=== PATIENT | female | born 1965 | race Caucasian/White ===

== ENCOUNTER 2018-03-20 16:49 | Emergency (ER) | payer BC ==
[2018-03-20 17:10] VITALS: BP 153/90; PULSE 89; RESP 16; TEMP 98.3
--- NOTE | 2018-03-20 17:42 | ED ---
Extremity Problem HPI - General Chief complaint: Extremity Problem,Nontraumatic Stated complaint: Poss DVT rt leg Time Seen by Provider: 03/20/18 17:27 Source: patient, RN notes reviewed Mode of arrival: ambulatory Limitations: no limitations - History of Present Illness Initial comments: 52-year-old female presents emergency Department chief complaint of right leg pain and swelling. Patient states that she's had this ongoing rash that she is seeing dermatology and rheumatology for they initially thought it was psoriatic rash though they found it is some sort granulomatous disease and they have started on Silvadene. Patient states that they noticed that her right leg was more swollen, slightly increased warmth. They told her concern about possible DVT and sent here for ultrasound. Patient denies any chest pain or shortness breath. Denies any other complaints. - Related Data Home Medications Medication Instructions Recorded Confirmed Lisinopril [Prinivil] 5 mg PO DAILY 09/21/15 03/20/18 Cefadroxil [Duricef] 500 mg PO QID 03/20/18 03/20/18 Cymbalta (Unknown Dose) 1 tab PO DIRECTED 03/20/18 03/20/18 Ibuprofen [Motrin Ib] 600 mg PO Q6H PRN 03/20/18 03/20/18 Lisdexamfetamine Dimesylate 10 mg PO QAM 03/20/18 03/20/18 [Vyvanse] Silver Sulfadiazine [SSD 1% Cream] 1 applic TOPICAL DIRECTED 03/20/18 Allergies Allergy/AdvReac Type Severity Reaction Status Date / Time amoxicillin trihydrate AdvReac Nausea & Verified 03/20/18 17:44 [From Augmentin] Vomiting Iodinated Contrast- Oral and AdvReac Swelling Verified 03/20/18 17:44 IV Dye meperidine HCl [From Demerol] AdvReac Nausea & Verified 03/20/18 17:44 Vomiting potassium clavulanate AdvReac Nausea & Verified 03/20/18 17:44 [From Augmentin] Vomiting Review of Systems ROS Statement: Those systems with pertinent positive or pertinent negative responses have been documented in the HPI. ROS Other: All systems not noted in ROS Statement are negative. Past Medical History Past Medical History: Hypertension History of Any Multi-Drug Resistant Organisms: None Reported Past Surgical History: Section, Cholecystectomy, Tonsillectomy Additional Past Surgical History / Comment(s): ACL repair left, Left knee Repair , Gastric Sleeve - 2010 Past Psychological History: ADD/ADHD Smoking Status: Never smoker Past Alcohol Use History: Occasional Past Drug Use History: None Reported General Exam Limitations: no limitations General appearance: alert, in no apparent distress Respiratory exam: Present: normal lung sounds bilaterally. Absent: respiratory distress, wheezes, rales, rhonchi, stridor Cardiovascular Exam: Present: regular rate, normal rhythm, normal heart sounds. Absent: systolic murmur, diastolic murmur, rubs, gallop, clicks Extremities exam: Present: other (Right calf there is moderate swelling, there is a noted rash on the anterior to lateral surface of the right lower extremity which is scaly, mild erythema pedal pulses equal bilaterally lower extremities) Skin exam: Present: warm, dry, intact, normal color. Absent: rash Course Vital Signs 03/20/18 17:08 Temperature 98.3 F Pulse Rate 89 Respiratory 16 Rate Blood Pressure 153/90 O2 Sat by Pulse 100 Oximetry Medical Decision Making - Medical Decision Making 52-year-old female presented for leg swelling. Patient did have ultrasound which was negative for acute DVT swelling is related to her rash or leg currently being seen by dermatology and rheumatology. Patient has current new treatment and will start this and return for any worsening symptoms. Disposition Clinical Impression: Swelling of right lower extremity, Rash Disposition: HOME SELF-CARE Condition: Stable Instructions: Leg Edema (ED) Additional Instructions: Please return to the Emergency Department if symptoms worsen or any other concerns. Is patient prescribed a controlled substance at d/c from ED?: No Referrals: Winston Cain DO [Primary Care Provider] - 1-2 days Time of Disposition: 19:01
--- NOTE | 2018-03-20 18:38 | US ---
EXAMINATION TYPE: US venous doppler duplex LE RT DATE OF EXAM: 03/20/2018 6:31 PM COMPARISON: NONE CLINICAL HISTORY: Pain. Right lower leg pain and swelling x 6 weeks SIDE PERFORMED: Right TECHNIQUE: The lower extremity deep venous system is examined utilizing real time linear array sonog chiquita with graded compression, doppler sonography and color-flow sonography. VESSELS IMAGED: External Iliac Vein (EIV) Common Femoral Vein Deep Femoral Vein Greater Saphenous Vein * Femoral Vein Popliteal Vein Small Saphenous Vein * Proximal Calf Veins (* superficial vessels) Right Leg: Appears negative for DVT IMPRESSION: Normal exam. No evidence of deep venous thrombosis in the right leg.
== END 2018-03-20 19:14 | disposition home or self-care (01) ==
LOC: EC 16:49
DX: M79.89 Other specified soft tissue disorders (principal); R21 Rash and other nonspecific skin eruption; M79.604 Pain in right leg; I10 Essential (primary) hypertension; F90.9 Attention-deficit hyperactivity disorder, unspecified type; Z79.899 Other long term (current) drug therapy; Z88.0 Allergy status to penicillin; Z91.041 Radiographic dye allergy status; Z88.5 Allergy status to narcotic agent
CPT/HCPCS: 99283

== ENCOUNTER 2019-05-11 11:17 | Observation (INO) | payer BC ==
[2019-05-11] MEDS ORDERED: ASPIRIN 81 MG PO STA (11:39)
[2019-05-11] MEDS ORDERED: NITROGLYCERIN SL TABS 0.4 MG TAB SUBLINGUAL STA (11:39)
[2019-05-11] MEDS: SODIUM CHLORIDE 0.9% 1,000 ML IV STA (11:45)
--- NOTE | 2019-05-11 11:48 | ED ---
Chest Pain HPI - General Chief Complaint: Chest Pain Stated Complaint: SOB, CHEST PAIN/HEAVYNESS, SHOULDER BLADES Time Seen by Provider: 05/11/19 11:22 Source: patient, RN notes reviewed Mode of arrival: wheelchair Limitations: no limitations - History of Present Illness Initial Comments: This is a 53-year-old female with no prior personal history of heart disease she is an occasional smoker and drinker who states about half hour prior to arrival started developing retrosternal chest heaviness with sharp pain going across her lower chest and upper abdomen and then toward her back and shoulder blades she also states her teeth and jaw hurt and she also had radiation down her left arm the pain was initially 7/10 is now down to about 5/10 it was associated with shortness of breath no fevers chills sweats no focal weakness no other symptoms. He has no prior personal history of heart disease. MD Complaint: chest pain - Related Data Home Medications Medication Instructions Recorded Confirmed Lisinopril [Prinivil] 5 mg PO DAILY 09/21/15 05/11/19 Ibuprofen [Motrin Ib] 600 mg PO Q6H PRN 03/20/18 05/11/19 Lisdexamfetamine Dimesylate 10 mg PO QAM 03/20/18 05/11/19 [Vyvanse] DULoxetine HCL [Cymbalta] 30 mg PO HS 05/11/19 05/11/19 Esomeprazole Magnesium [NexIUM] 40 mg PO DAILY 05/11/19 05/11/19 Allergies Allergy/AdvReac Type Severity Reaction Status Date / Time amoxicillin trihydrate AdvReac Nausea & Verified 05/11/19 11:58 [From Augmentin] Vomiting Iodinated Contrast Media AdvReac Swelling Verified 05/11/19 11:58 [Iodinated Contrast- Oral and IV Dye] meperidine HCl [From Demerol] AdvReac Nausea & Verified 05/11/19 11:58 Vomiting potassium clavulanate AdvReac Nausea & Verified 05/11/19 11:58 [From Augmentin] Vomiting Review of Systems ROS Statement: Those systems with pertinent positive or pertinent negative responses have been documented in the HPI. ROS Other: All systems not noted in ROS Statement are negative. EKG Findings - EKG Results: EKG: interpreted by ERMD, WNL, sinus rhythm, normal axis, normal QRS, normal ST/T, no acute changes (Ventricular rate 91 UT interval 170 QRS duration 92 QT/QTC 374/460) Past Medical History Past Medical History: CVA/TIA, Hypertension History of Any Multi-Drug Resistant Organisms: None Reported Past Surgical History: Section, Cholecystectomy, Tonsillectomy Additional Past Surgical History / Comment(s): ACL repair left, Left knee Repair, Gastric Sleeve - 2010, Past Psychological History: ADD/ADHD Smoking Status: Never smoker Past Alcohol Use History: Occasional Past Drug Use History: None Reported General Exam - General Exam Comments Initial Comments: This is a well-developed well-nourished awake alert oriented 3 female Limitations: no limitations General appearance: alert, anxious Head exam: Present: atraumatic, normocephalic, normal inspection Eye exam: Present: normal appearance, PERRL, EOMI. Absent: scleral icterus, conjunctival injection, periorbital swelling ENT exam: Present: normal exam, mucous membranes moist Neck exam: Present: normal inspection, full ROM, other (No stridor JVD or bruits). Absent: tenderness, meningismus, lymphadenopathy Respiratory exam: Present: normal lung sounds bilaterally. Absent: respiratory distress, wheezes, rales, rhonchi, stridor Cardiovascular Exam: Present: regular rate, normal rhythm, normal heart sounds. Absent: systolic murmur, diastolic murmur, rubs, gallop, clicks GI/Abdominal exam: Present: soft, normal bowel sounds. Absent: distended, tenderness, guarding, rebound, rigid, bruit, pulsatile mass Extremities exam: Present: normal inspection, full ROM, normal capillary refill. Absent: tenderness, pedal edema, joint swelling, calf tenderness Back exam: Present: normal inspection Neurological exam: Present: alert, oriented X3, CN II-XII intact Psychiatric exam: Present: normal affect, normal mood Skin exam: Present: warm, dry, intact, normal color. 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 Patient is pain-free at this time though is unclear whether the patient's discomfort was helped by aspirin and nitroglycerin. She states she's never felt anything quite like this before. After long discussion with her and her patient be staying for inpatient evaluation of chest pain which is consistent with acute coronary syndrome. Critical Care Time Critical Care Time: Yes Critical Care Time: 31 minutes of critical care time which includes initial presentation with history physical labs x-rays therapy discuss with the patient family regarding findings discussion with the main physician Dr. Bo and admission orders Disposition Clinical Impression: Unstable angina pectoris, Acute coronary syndrome, Chest pain Disposition: ADMITTED IP TO THIS [facility] Condition: Fair Referrals: Winston Cain DO [Primary Care Provider] - 1-2 days
[2019-05-11 12:00] LABS: Basophils % (A) 0 %; Eosinophils # (A) 0.3 k/uL (0-0.7); Eosinophils % (A) 5 %; Lymphocytes # (A) 1.7 k/uL (1.0-4.8); Lymphocytes % (A) 25 %; MCH 29.2 pg (25.0-35.0); MCHC 33.5 g/dL (31.0-37.0); MCV 87.3 fL (80.0-100.0); Mean Platelet Volume 5.8; Monocytes # (A) 0.3 k/uL (0-1.0); Monocytes % (A) 5 %; Neutrophils # (A) 4.1 k/uL (1.3-7.7); Neutrophils % (A) 62 %; Platelet Count 251 k/uL (150-450); RBC 4.12 m/uL (3.80-5.40); RDW 14.5 % (11.5-15.5); WBC 6.7 k/uL (3.8-10.6)
[2019-05-11 12:15] LABS: Albumin 4.2 g/dL (3.5-5.0); Calcium 9.4 mg/dL (8.4-10.2); Magnesium 1.9 mg/dL (1.6-2.3); Potassium 4.2 mmol/L (3.5-5.1); Total Bilirubin 0.3 mg/dL (0.2-1.3); Total Protein 6.9 g/dL (6.3-8.2)
--- NOTE | 2019-05-11 12:25 | XR ---
EXAMINATION TYPE: XR chest 2V DATE OF EXAM: 05/11/2019 COMPARISON: 10/06/2012 TECHNIQUE: PA and lateral views submitted. HISTORY: Chest pain FINDINGS: The lungs are clear and there is no pneumothorax, pleural effusion, or focal pneumonia. Arthropathy of the shoulders. No overt failure. Heart size normal. Surgical clips in the gallbladder fossa. IMPRESSION: 1. No acute process.
[2019-05-11 12:29] LABS: D-Dimer 0.56 mg/L FEU (<0.60); INR 0.9 (<1.2); Partial Thromboplastin Time 22.3 sec (22.0-30.0); Prothrombin Time 9.6 sec (9.0-12.0)
[2019-05-11] MEDS ORDERED: HEPARIN SODIUM,PORCINE 5,000 UNIT/ML 1 ML VIAL IV ONE (14:05)
[2019-05-11] MEDS ORDERED: NITROGLYCERIN SL TABS 0.4 MG TAB SUBLINGUAL PRN (14:05)
[2019-05-11] MEDS ORDERED: IBUPROFEN 600 MG TAB PO PRN (14:08)
[2019-05-11] MEDS ORDERED: HEPARIN SOD,PORK IN 0.45% NACL 25,000 UNIT in 0.45% NACL 1 250ML.BAG IV SCH (14:15)
[2019-05-11] MEDS: NITROGLYCERIN OINT 1 INCH/GM PACKET TOPICAL SCH (18:17)
[2019-05-11] MEDS ORDERED: DULoxetine HCL 30 MG CAPSULE.DR PO SCH (21:00)
[2019-05-12] MEDS: NITROGLYCERIN OINT 1 INCH/GM PACKET TOPICAL SCH ×2 (01:41→05:48)
[2019-05-12] MEDS: SODIUM CHLORIDE 0.9% 1,000 ML IV STA (03:07)
[2019-05-12 07:11] VITALS: RESP 16
[2019-05-12] MEDS ORDERED: PANTOPRAZOLE 40 MG TABLET PO SCH (07:30)
[2019-05-12 07:54] LABS: Cholesterol 216 mg/dL (<200); HDL Cholesterol 51 mg/dL (40-60); LDL Cholesterol,Calculated 137 mg/dL (0-99); Triglycerides 142 mg/dL (<150)
[2019-05-12] MEDS ORDERED: ACETAMINOPHEN TAB 500 MG TAB PO PRN (08:59)
[2019-05-12] MEDS ORDERED: LISINOPRIL 5 MG TAB PO SCH (09:00)
[2019-05-12] MEDS ORDERED: ASPIRIN 325 MG TAB PO SCH (09:00)
[2019-05-12] MEDS ORDERED: LISDEXAMFETAMINE DIMESYLATE 10 MG PO SCH (09:00)
[2019-05-12] MEDS ORDERED: ASPIRIN 81 MG PO SCH (09:00)
[2019-05-12] MEDS ORDERED: IBUPROFEN 600 MG TAB PO PRN (09:12)
[2019-05-12] MEDS ORDERED: ATORVASTATIN 20 MG TAB PO SCH (09:15)
--- NOTE | 2019-05-12 09:48 | P.CRDCN ---
History of Present Illness History of present illness: This is a pleasant 53-year-old female past medical history significant for hypertension, attention deficit disorder, previous gastric sleeve surgery, depression and chronic nicotine dependence. She denies prior history of coronary artery disease and does not follow with a drier operator helper for any reason. We have been asked to see her in consultation secondary to chest discomfort. 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 Yesterday morning after arriving at work she walked up the stairs to talk with a teacher about a student. Once she started walking away she felt a pain in the chest that started as sharp and then felt heavy and tight like a band around her chest with radiation to the jaw, teeth, left shoulder and down the left arm. She went back down the stairs and sat in a coworker's office. A coworker states she was mildly diaphoretic. Her symptoms persisted for approximately 35 minutes until coming to the emergency department. She was given with some legal nitroglycerin and aspirin. Her symptoms did slowly start to subside. She is seen and examin ed resting comfortably in bed in no acute distress. She has had no further symptoms of chest discomfort since arriving at the hospital. EKG obtained on admission revealed sinus mechanism with no acute ST or T-wave abnormalities. Repeat EKG this morning is unremarkable and again shows sinus mechanism. Chest x-ray is negative for an acute cardiopulmonary process. Laboratory data reviewed, CBC unremarkable, d-dimer 0.56, sodium 139, potassium 4.2, creatinine 0.89, magnesium 1.9, cardiac enzymes negative 3, proBNP 59, LDL 137, HDL 51 and total cholesterol 216. Current daily cardiac medications include lisinopril 5 mg daily. At the time of my exam: CONSTITUTIONAL: Denies fever. Denies chills. EYES: Denies blurred vision. Denies vision changes. Denies eye pain. EARS, NOSE, MOUTH & THROAT: Denies headache. Denies sore throat. Denies ear pain. CARDIOVASCULAR: Denies chest pain. Denies shortness of breath. Denies orthopnea. Denies PND. Denies palpitations. RESPIRATORY: Denies cough. GASTROINTESTINAL: Denies abdominal pain. Denies diarrhea. Denies constipation. Denies nausea. Denies vomiting. MUSCULOSKELETAL: Denies myalgias. INTEGUMENTARY: Denies pruitis. Denies rash. NEUROLOGIC: Denies numbness. Denies tingling. Denies weakness. PSYCHIATRIC: Denies anxiety. Denies depression. ENDOCRINE: Denies fatigue. Denies weight change. Denies polydipsia. Denies polyurina. GENITOURINARY: Denies burning, hematuria or urgency with micturation. HEMATOLOGIC: Denies history of anemia. Denies bleeding. Blood pressure 122/84 heart rate 86 afebrile maintaining oxygen saturation on room air GENERAL: This is a 53-year-old female in no apparent distress at the time of my examination. HEENT: Head is atraumatic, normocephalic. Pupils are equal, round. Sclerae anicteric. Conjunctivae are clear. Mucous membranes of the mouth are moist. Neck is supple. There is no jugular venous distention. No carotid bruit is heard. LUNGS: Clear to auscultation no wheezes, rales or rhonchi. No chest wall tenderness is noted on palpation or with deep breathing. HEART: Regular rate and rhythm without murmurs, rubs or gallops. S1 and S2 heard. ABDOMEN: Soft, nontender. Bowel sounds are heard. No organomegaly noted. EXTREMITIES: No evidence of peripheral edema and no calf tenderness noted. VASCULAR: Radial and dorsalis pedis pulses palpated, no evidence of clubbing. NEUROLOGIC: Patient is awake, alert and oriented x3. ASSESSMENT Chest pain, an acute coronary event has been ruled out. No EKG evidence of ischemia negative cardiac enzymes. Hypertension Dyslipidemia Chronic nicotine dependence PLAN An acute coronary event has been ruled out. No EKG evidence of ischemia and negative cardiac enzymes. Recommend proceeding with stress echocardiogram to assess for stress-induced ischemia. Obtain 2-D echocardiogram and Doppler study to assess cardiac structure and function. Initiate on atorvastatin 20 mg daily for optimal LDL of less than 100. Smoking cessation strongly recommended. Thank you kindly for this consultation. Nurse Practitioner note has been reviewed, I agree with a documented findings and plan of care. Patient was seen and examined. Past Medical History Past Medical History: CVA/TIA, Hypertension History of Any Multi-Drug Resistant Organisms: None Reported Past Surgical History: Section, Cholecystectomy, Tonsillectomy Additional Past Surgical History / Comment(s): ACL repair left, Left knee Repair, Gastric Sleeve - 2010, Past Psychological History: ADD/ADHD Smoking Status: Current some day smoker Past Alcohol Use History: Occasional Past Drug Use History: None Reported Medications and Allergies Home Medications Medication Instructions Recorded Confirmed Type Lisinopril [Prinivil] 5 mg PO DAILY 09/21/15 05/11/19 History Ibuprofen [Motrin Ib] 600 mg PO Q6H PRN 03/20/18 05/11/19 History Lisdexamfetamine Dimesylate 10 mg PO QAM 03/20/18 05/11/19 History [Vyvanse] DULoxetine HCL [Cymbalta] 30 mg PO HS 05/11/19 05/11/19 History Esomeprazole Magnesium [NexIUM] 40 mg PO DAILY 05/11/19 05/11/19 History Allergies Allergy/AdvReac Type Severity Reaction Status Date / Time amoxicillin trihydrate AdvReac Nausea & Verified 05/11/19 11:58 [From Augmentin] Vomiting Iodinated Contrast Media AdvReac Swelling Verified 05/11/19 11:58 [Iodinated Contrast- Oral and IV Dye] meperidine HCl [From Demerol] AdvReac Nausea & Verified 05/11/19 11:58 Vomiting potassium clavulanate AdvReac Nausea & Verified 05/11/19 11:58 [From Augmentin] Vomiting Physical Exam Vitals: Vital Signs Temp Pulse Pulse Pulse Resp BP BP 05/12/19 07:00 97.3 F L 86 16 122/84 05/12/19 03:42 98.0 F 93 15 112/78 05/12/19 03:13 87 16 05/11/19 23:45 89 16 05/11/19 23:13 98.0 F 89 15 117/75 05/11/19 19:15 104 H 15 05/11/19 19:00 97.9 F 79 15 113/79 05/11/19 15:54 05/11/19 15:20 98.6 F 95 18 127/72 05/11/19 15:03 98.2 F 97 14 142/85 05/11/19 14:07 97 14 142/85 05/11/19 11:47 90 05/11/19 11:30 98.2 F 85 18 141/84 Pulse Ox 05/12/19 07:00 99 05/12/19 03:42 98 05/12/19 03:13 05/11/19 23:45 05/11/19 23:13 98 05/11/19 19:15 05/11/19 19:00 98 05/11/19 15:54 97 05/11/19 15:20 99 05/11/19 15:03 98 05/11/19 14:07 98 05/11/19 11:47 05/11/19 11:30 98 Intake and Output 05/11/19 05/12/19 05/12/19 22:59 06:59 14:59 Intake Total 240 Balance 240 Intake: Oral 240 Other: Voiding Method Toilet Toilet # Voids 1 1 Results 05/11/19 11:41 05/11/19 11:41 Cardiac Enzymes 05/11/19 05/11/19 05/11/19 Range/Units 11:41 11:41 17:30 AST 27 (14-36) U/L Troponin I <0.012 <0.012 (0.000-0.034) ng/mL 05/11/19 Range/Units 23:37 AST (14-36) U/L Troponin I <0.012 (0.000-0.034) ng/mL Coagulation 05/11/19 05/11/19 05/12/19 Range/Units 11:41 21:08 06:52 PT 9.6 (9.0-12.0) sec APTT 22.3 48.6 H 49.0 H (22.0-30.0) sec Lipids 05/12/19 Range/Units 06:52 Triglycerides 142 (<150) mg/dL Cholesterol 216 H (<200) mg/dL HDL Cholesterol 51 (40-60) mg/dL CBC 05/11/19 Range/Units 11:41 WBC 6.7 (3.8-10.6) k/uL RBC 4.12 (3.80-5.40) m/uL Hgb 12.0 (11.4-16.0) gm/dL Hct 36.0 (34.0-46.0) % Plt Count 251 (150-450) k/uL Comprehensive Metabolic Panel 05/11/19 Range/Units 11:41 Sodium 139 (137-145) mmol/L Potassium 4.2 (3.5-5.1) mmol/L Chloride 104 (98-107) mmol/L Carbon Dioxide 28 (22-30) mmol/L BUN 11 (7-17) mg/dL Creatinine 0.89 (0.52-1.04) mg/dL Glucose 91 (74-99) mg/dL Calcium 9.4 (8.4-10.2) mg/dL AST 27 (14-36) U/L ALT 25 (9-52) U/L Alkaline Phosphatase 89 (38-126) U/L Total Protein 6.9 (6.3-8.2) g/dL Albumin 4.2 (3.5-5.0) g/dL Current Medications Generic Name Dose Route Start Last Admin Trade Name Freq PRN Reason Stop Dose Admin Aspirin 325 mg 05/12/19 09:00 Aspirin PO DAILY [facility] Duloxetine HCl 30 mg 05/11/19 21:00 05/11/19 21:20 Cymbalta PO 30 mg HS [facility] Administration Heparin Sodium/Sodium Chloride 250 mls @ 8.6 mls/hr 05/11/19 14:15 05/11/19 14:57 25,000 unit/ Sodium Chloride IV 12 units/kg/hr .Q24H GEO 8.6 mls/hr Administration Protocol 12 UNITS/KG/HR Ibuprofen 600 mg 05/11/19 14:08 Motrin PO Q6H PRN Moderate Pain Lisinopril 5 mg 05/12/19 09:00 Zestril PO DAILY [facility] Nitroglycerin 0.4 mg 05/11/19 14:05 Nitrostat SUBLINGUAL Q5M PRN Chest Pain Nitroglycerin 1 inch 05/11/19 18:00 05/12/19 05:48 Nitro-Bid Oint TOPICAL Not Given Q6HR [facility] Non-Formulary Medication 10 mg 05/12/19 09:00 Lisdexamfetamine Dimesylate [Vyvanse] PO QAM [facility] Pantoprazole Sodium 40 mg 05/12/19 07:30 Protonix PO AC-BRKFST [facility] Intake and Output 05/11/19 05/12/19 05/12/19 22:59 06:59 14:59 Intake Total 240 Balance 240 Intake: Oral 240 Other: Voiding Method Toilet Toilet # Voids 1 1 05/11/19 11:41 05/11/19 11:41
[2019-05-12 11:58] VITALS: BP 118/83; PULSE 98; TEMP 97.6
--- NOTE | 2019-05-12 12:01 | ECHOF ---
Referral Reason:cp MEASUREMENTS -------- HEIGHT: 152.4 cm WEIGHT: 71.7 kg BP: 122/84 RVIDd: 3.0 cm (< 3.3) IVSd: 1.3 cm (0.6 - 1.1) LVIDd: 3.6 cm (3.9 - 5.3) LVPWd: 1.0 cm (0.6 - 1.1) IVSs: 1.4 cm LVIDs: 3.0 cm LVPWs: 1.3 cm LAESV Index (A-L): 17.91 ml/m Ao Diam: 3.5 cm (2.0 - 3.7) AV Cusp: 1.7 cm (1.5 - 2.6) MV EXCURSION: 18.395 mm (> 18.000) MV EF SLOPE: 82 mm/s (70 - 150) EPSS: 0.2 cm MV E Dat: 0.67 m/s MV DecT: 231 ms MV A Dat: 0.71 m/s MV E/A Ratio: 0.95 RAP: 5.00 mmHg RVSP: 11.51 mmHg FINDINGS -------- Sinus rhythm. This was a technically adequate study. The left ventricular size is normal. There is mild concentric left ventricular hypertrophy. Overa ll left ventricular systolic function is normal with, an EF between 55 - 60 %. The right ventricle is normal in size. The left atrial size is normal. The right atrial size is normal. The aortic valve is trileaflet, and appears structurally normal. No aortic stenosis or regurgitation. Mild mitral annular calcification present. Mild mitral regurgitation is present. Mild tricuspid regurgitation present. Right ventricular systolic pressure is normal at < 35 mmHg. There is no evidence of pulmonary hypertension. There is no pulmonic regurgitation present. The aortic root size is normal. There is no pericardial effusion. CONCLUSIONS -------- 1. Sinus rhythm. 2. This was a technically adequate study. 3. The left ventricular size is normal. 4. There is mild concentric left ventricular hypertrophy. 5. Overall left ventricular systolic function is normal with, an EF between 55 - 60 %. 6. The right ventricle is normal in size. 7. The left atrial size is normal. 8. The right atrial size is normal. 9. The aortic valve is trileaflet, and appears structurally normal. No aortic stenosis or regurgitati on. 10. Mild mitral annular calcification present. 11. Mild mitral regurgitation is present. 12. Mild tricuspid regurgitation present. 13. Right ventricular systolic pressure is normal at < 35 mmHg. 14. There is no evidence of pulmonary hypertension. 15. There is no pulmonic regurgitation present. 16. The aortic root size is normal. 17. There is no pericardial effusion. PASTRY SOUS CHEF: Nohemi Quiroga RDCS
--- NOTE | 2019-05-12 14:12 | ECHOS ---
STRESS ECHOCARDIOGRAM INDICATIONS: Chest pain. BASELINE HEART RATE: 81 BASELINE BLOOD PRESSURE: 99/65 MAXIMUM HEART RATE: 154 MAXIMUM BLOOD PRESSURE: 172/67 85% MPHR: 140 100% MPHR: 165 METS: 7.1 MAXIMUM STAGE REACHED: 2 TOTAL EXERCISE TIME: 6:00 CLINICAL INFORMATION: Baseline EKG revealed a sinus mechanism without significant ST-T changes. Patient exercised on a standard [place] protocol for 6 minutes, achieved a maximal heart rate of 154 beats per minute which is well above 85% of predicted maximal. She developed fatigue and shortness of breath but did not have any angina. There was no arrhythmia. EKG did not reveal any ST-segment changes to indicate ischemia. At peak exercise, one isolated PVC was noted. This is a negative stress test with limited exercise capacity and no angina. No evidence of ischemia by EKG criteria. Baseline echo images revealed normal wall motion and wall thickening of all segments. Echo contrast Lumason was used to enhance the quality of images. At peak exercise there was good augmentation of left ventricular wall motion and wall thickening of all segments suggesting that there is no evidence of any stress-induced ischemia on this study. FINAL IMPRESSION: 1. Limited exercise capacity with a negative stress test by EKG criteria. No angina or arrhythmia of significance was noted. 2. Normal stress echocardiogram. MMODL / IJN: [id number] /
--- NOTE | 2019-05-12 19:55 | HP ---
HISTORY AND PHYSICAL CHIEF COMPLAINT: Chest pain. 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 On the morning of admission, she started to experience some sharp chest pain which radiated to her upper abdomen and into her jaw. Her mouth became dry and she became short of breath. The pain then went into the left posterior chest and left arm. She was slightly clammy. She has been under some stress. The pain is not very typical. Studies in emergency room were normal. REVIEW OF SYSTEMS: She has had no new neurologic problems, change in vision or hearing, TIAs, focal neurologic deficits, fever and chills, sputum production, hemoptysis, pleurisy, orthopnea, PND, murmurs, rheumatic fever, ulcer disease, gallbladder disease, jaundice, hepatitis, cirrhosis, melena, hematochezia, diarrhea, diverticulosis, diverticulitis, hemorrhoids, etc. She has had no renal failure, hematuria, dysuria, frequency, urgency, etc. She is not diabetic. Past medical history, family history and personal and social histories reveal that she is on lisinopril, Vyvanse, Nexium, and Cymbalta. She is not allergic to any medication. Surgically, she has had 2 C sections, cholecystectomy, sleeve gastrectomy, ACL repair in the left knee, breast reduction and T&A. See has heart disease in her family in her mother. She smokes rarely. PHYSICAL EXAMINATION: Blood pressure is 142/73 with a pulse of 80, respirations of 22, and she is afebrile. In general, she appeared to be slightly overweight, in no acute distress. Skin color is normal. Skin is warm, dry. Lymph nodes not enlarged. Head, ears, eyes, nose, mouth, and throat were normal and neck veins not distended. Thyroid not enlarged. Chest is clear. There are no rubs. No murmurs. Cardiac exam is otherwise normal. Abdomen is soft, nontender. Extremities: Normal. Neurologically she is intact. IMPRESSION: She was admitted to the hospital with diagnoses: 1. Atypical chest pain. 2. History of hypertension. PLAN: 1. Bed rest. 2. IV fluids. 3. Serial EKGs and enzymes. 4. Cardiology consult. MMODL / IJN: [id number] /
--- NOTE | 2019-05-13 10:07 | DS ---
DISCHARGE SUMMARY CHIEF COMPLAINT: Atypical chest pain. HISTORY OF PRESENT ILLNESS AND PHYSICAL EXAM: Details of this lady's history and physical can be found in the initial workup. LABORATORY STUDIES: While she was in a hospital she had laboratory studies, details of which can be found in the laboratory section of her chart. COURSE IN HOSPITAL: After admission she was placed on bedrest and started on intravenous fluids and had serial EKGs and enzymes are normal. She was seen by Cardiology and taken for a stress study and that was normal. It was felt she could go home and she will go home on her usual activity, diet and medication and she will follow up in our office or with her own physician in several days. FINAL DIAGNOSES: 1. Atypical chest pain. 2. Hypertension. OPERATIONS: None. CONSULTATION: Cardiology. She is improved. MMGORANL / LIDYAN: [id number] /
== END 2019-05-12 14:42 | disposition home or self-care (01) ==
LOC: EC 11:17 → 1SOBS 14:06
PROVIDERS: ADMIT Family Medicine; ATTEND Family Medicine
DX: R07.89 Other chest pain (principal); I10 Essential (primary) hypertension; Z98.84 Bariatric surgery status; F17.200 Nicotine dependence, unspecified, uncomplicated; F98.8 Other specified behavioral and emotional disorders with onset usually occurring in childhood and adolescence; Z79.899 Other long term (current) drug therapy; E78.5 Hyperlipidemia, unspecified; R06.02 Shortness of breath
CPT/HCPCS: 96361; 96366 ×2; 96376; 96365; 99291; 36415; 93005; 93306; 93351; 85379; 83880; 80061; 80053; 82550; 83690; 83735; 84484; 85025; 85610; 85730 ×2; 71046; G0378 ×2; J1644 ×2; Q9950

== ENCOUNTER 2022-08-09 21:18 | Emergency (ER) | payer BC ==
[2022-08-09] MEDS ORDERED: SODIUM CHLORIDE 0.9% 1,000 ML IV STA (21:34)
--- NOTE | 2022-08-09 21:36 | ED ---
General Adult HPI - General Chief complaint: Syncope Stated complaint: Syncope Time Seen by Provider: 08/09/22 21:34 Source: patient, EMS Mode of arrival: EMS Limitations: no limitations - History of Present Illness Initial comments: Patient presents to the ED by ambulance for evaluation status post syncopal episode. Patient states that she was walking to the bathroom when her son reports that she had a syncopal episode. Patient states that she was told that she fell backwards and hit her head on a door jam, then attempted to get back up and fell back down again. Patient states that she remembers this episode only ever so slightly. Patient states that she does recall being on the floor before the paramedics arrived. Patient admits to drinking 2 beers and a glass and a half of wine this evening. Patient denies any illicit drug use. Patient is currently only complaining of having pain to her "tailbone". Patient denies any other site of pain, fever or chills, headache, focal numbness/weakness/neuro deficit, visual changes, neck/upper back pain, extremity pain, chest pain, dyspnea, palpitations, abdominal pain, nausea/vomiting/diarrhea, bloody or melanotic stool, dysuria or urinary symptoms, or any other symptoms or complaints. - Related Data Home Medications Medication Instructions Recorded Confirmed Lisinopril [Prinivil] 5 mg PO DAILY 09/21/15 05/11/19 Ibuprofen [Motrin Ib] 600 mg PO Q6H PRN 03/20/18 05/11/19 Lisdexamfetamine Dimesylate 10 mg PO QAM 03/20/18 05/11/19 [Vyvanse] DULoxetine HCL [Cymbalta] 30 mg PO HS 05/11/19 05/11/19 Esomeprazole Magnesium [NexIUM] 40 mg PO DAILY 05/11/19 05/11/19 Previous Rx's Medication Instructions Recorded Atorvastatin [Lipitor] 20 mg PO DAILY #90 tab 05/12/19 Allergies Allergy/AdvReac Type Severity Reaction Status Date / Time amoxicillin trihydrate AdvReac Nausea & Verified 05/11/19 11:58 [From Augmentin] Vomiting Iodinated Contrast Media AdvReac Swelling Verified 05/11/19 11:58 [Iodinated Contrast- Oral and IV Dye] meperidine HCl [From Demerol] AdvReac Nausea & Verified 05/11/19 11:58 Vomiting potassium clavulanate AdvReac Nausea & Verified 05/11/19 11:58 [From Augmentin] Vomiting Review of Systems ROS Statement: Those systems with pertinent positive or pertinent negative responses have been documented in the HPI. ROS Other: All systems not noted in ROS Statement are negative. Past Medical History Past Medical History: CVA/TIA, Hypertension History of Any Multi-Drug Resistant Organisms: None Reported Past Surgical History: Section, Cholecystectomy, Tonsillectomy Additional Past Surgical History / Comment(s): ACL repair left, Left knee Repair, Gastric Sleeve - 2010, Past Psychological History: ADD/ADHD Past Alcohol Use History: Occasional Past Drug Use History: None Reported General Exam Limitations: no limitations General appearance: alert, in no apparent distress Head exam: Present: atraumatic, normocephalic Eye exam: Present: normal appearance, PERRL, EOMI ENT exam: Present: mucous membranes dry, TM's normal bilaterally Neck exam: Present: other (Trachea is in midline; no cervical spinal tenderness or step-off deformity). Absent: tenderness Respiratory exam: Present: normal lung sounds bilaterally. Absent: respiratory distress, wheezes, rales, rhonchi, stridor, chest wall tenderness Cardiovascular Exam: Present: regular rate, normal rhythm, normal heart sounds, other (Normal radial pulses bilaterally) GI/Abdominal exam: Present: soft. Absent: distended, tenderness, guarding Extremities exam: Present: full ROM, other (Pelvis is stable and nontender). A bsent: tenderness, pedal edema, calf tenderness Back exam: Present: full ROM, other (Mild sacral/coccygeal tenderness) Neurological exam: Present: alert, oriented X3, CN II-XII intact. Absent: motor sensory deficit Psychiatric exam: Present: normal affect, normal mood Skin exam: Present: warm, dry, intact, normal color Course Vital Signs 08/09/22 08/09/22 08/09/22 21:38 22:23 23:12 Pulse Rate 84 77 79 Respiratory 16 14 16 Rate Blood Pressure 107/80 119/77 113/83 O2 Sat by Pulse 94 L 97 99 Oximetry EKG Findings - EKG Comments: EKG Findings:: ED physician interpretation: Normal sinus rhythm, no ectopy, venticular rate of 83 bpm, normal KS and QRS intervals, normal QT interval, normal axis, no ST or T-wave abnormality Medical Decision Making - Medical Decision Making Was pt. sent in by a medical professional or institution (LEANDER Leon, MANAGER PEDIATRIC, urgent care, hospital, or penitentiary...) When possible be specific @ -[No] Did you speak to anyone other than the patient for history (EMS, parent, family, police, friend...)? What history was obtained from this source @ -[No] Did you review nursing and triage notes (agree or disagree)? Why? @ -[I reviewed and agree with nursing and triage notes] Were old charts reviewed (outside hosp., previous admission, EMS record, old EK G, old radiological studies, urgent care reports/EKG's, penitentiary records)? Report findings @ -[No old charts were reviewed] Differential Diagnosis (chest pain, altered mental status, abdominal pain women, abdominal pain men, vaginal bleeding, weakness, fever, dyspnea, syncope, headache, dizziness, GI bleed, back pain, seizure, CVA, palpatations, mental he alth)? @ -Differential Syncope: Valvular disease, PR, hypovolemia, hypoglycemia, anemia, intracranial hemorrhage, seizure, alcohol abuse, drug abuse, dehydration, electrolyte abno rmality, head injury, concussion, intracranial hemorrhage, sacral/coccygeal fracture/contusion, this is not meant to be an all-inclusive list. EKG interpreted by me (3pts min.). @ -As above X-rays interpreted by me (1pt min.). @ -[Negative chest x-ray] CT interpreted by me (1pt min.). @ -No U/S interpreted by me (1pt. min.). @ -[None done] What testing was considered but not performed or refused? (CT, X-rays, U/S, labs)? Why? @ -X-rays of sacrum/coccyx were ordered, but the patient refused What meds were considered but not given or refused? Why? @ -[None] Did you discuss the management of the patient with other professionals (professionals i.e. LEANDER Leon, MANAGER PEDIATRIC, lab, RT, psych nurse, web content & social media manager, senior quality technician, teacher, delinquency prevention officer, case investigator)? Give summary @ -[No] Was smoking cessation discussed for >3mins.? @ -[No] Was critical care preformed (if so, how long)? @ -[No] Were there social determinants of health that impacted care today? How? (Homelessness, low income, unemployed, alcoholism, drug addiction, transportation, low edu. Level, literacy, decrease access to med. care, penitentiary, rehab)? @ -[No] Was there de-escalation of care discussed even if they declined (Discuss DNR or withdrawal of care, Hospice)? DNR status @ -[No] What co-morbidities impacted this encounter? (DM, HTN, Smoking, COPD, CAD, Cancer, CVA, ARF, Chemo, Hep., AIDS, mental health diagnosis, sleep apnea, morbid obesity)? @ -[None] Was patient admitted / discharged? Hospital course, mention meds given and route, prescriptions, significant lab abnormalities, going to OR and other pertinent info. @ -[Patient denies development of any new symptoms while in the ED. Patient has been hydrated with a liter of normal saline in the ED. Patient's EKG, labs and imaging studies are fairly unremarkable. Patient has refused sacral/coccygeal x-rays. Patient was counseled about syncope and alcohol abuse, and she feels comfortable being discharged home at this time. I do not suspect an emergent medical cause of her syncopal episode. Patient was clearly explained return and follow-up instructions, and she was instructed to follow up closely with her primary care provider. Patient feels comfortable with this plan.] Undiagnosed new problem with uncertain prognosis? @ -[No] Drug Therapy requiring intensive monitoring for toxicity (Heparin, Nitro, Insulin, Cardizem)? @ -[No] Were any procedures done? @ -[No] Diagnosis/symptom? @ -[Syncope] Acute, or Chronic, or Acute on Chronic? @ -Acute Uncomplicated (without systemic symptoms) or Complicated (systemic symptoms)? @ -[default] Side effects of treatment? @ -[No] Exacerbation, Progression, or Severe Exacerbation? @ -[No] Poses a threat to life or bodily function? How? (Chest pain, USA, PR, pneumonia, PE, COPD, DKA, ARF, appy, cholecystitis, CVA, Diverticulitis, Homicidal, Suicidal, threat to staff... and all critical care pts) @ -[No] Diagnosis/symptom? @ -Alcohol abuse Acute, or Chronic, or Acute on Chronic? @ -Acute Uncomplicated (without systemic symptoms) or Complicated (systemic symptoms)? @ -[default] Side effects of treatment? @ -[none] Exacerbation, Progression, or Severe Exacerbation] @ -[no] Poses a threat to life or bodily function? @ -[no] Diagnosis/symptom? @ -Sacral contusion Acute, or Chronic, or Acute on Chronic? @ -Acute Uncomplicated (without systemic symptoms) or Complicated (systemic symptoms)? @ -Uncomplicated Side effects of treatment? @ -[none] Exacerbation, Progression, or Severe Exacerbation] @ -[no] Poses a threat to life or bodily function? @ -[no] - Lab Data Result diagrams: 08/09/22 21:36 08/09/22 21:36 Lab Results 08/09/22 08/09/22 08/09/22 Range/Units 21:36 21:36 21:36 WBC 7.2 (3.8-10.6) k/uL RBC 4.05 (3.80-5.40) m/uL Hgb 11.2 L (11.4-16.0) gm/dL Hct 34.2 (34.0-46.0) % MCV 84.5 (80.0-100.0) fL MCH 27.6 (25.0-35.0) pg MCHC 32.6 (31.0-37.0) g/dL RDW 14.8 (11.5-15.5) % Plt Count 260 (150-450) k/uL MPV 7.7 Neutrophils % 50 % Lymphocytes % 37 % Monocytes % 3 % Eosinophils % 6 % Basophils % 1 % Neutrophils # 3.6 (1.3-7.7) k/uL Lymphocytes # 2.7 (1.0-4.8) k/uL Monocytes # 0.2 (0-1.0) k/uL Eosinophils # 0.5 (0-0.7) k/uL Basophils # 0.1 (0-0.2) k/uL PT 10.0 (9.0-12.0) sec INR 0.9 (<1.2) APTT 20.0 L (22.0-30.0) sec Sodium 137 (137-145) mmol/L Potassium 4.1 (3.5-5.1) mmol/L Chloride 105 (98-107) mmol/L Carbon Dioxide 23 (22-30) mmol/L Anion Gap 9 mmol/L BUN 13 (7-17) mg/dL Creatinine 0.80 (0.52-1.04) mg/dL Est GFR (CKD-EPI)AfAm >90 (>60 ml/min/1.73 sqM) Est GFR (CKD-EPI)NonAf 82 (>60 ml/min/1.73 sqM) Glucose 135 H (74-99) mg/dL Calcium 8.9 (8.4-10.2) mg/dL Magnesium 1.9 (1.6-2.3) mg/dL Total Bilirubin 0.3 (0.2-1.3) mg/dL AST 28 (14-36) U/L ALT 22 (4-34) U/L Alkaline Phosphatase 79 (38-126) U/L Troponin I (0.000-0.034) ng/mL Total Protein 6.9 (6.3-8.2) g/dL Albumin 4.3 (3.5-5.0) g/dL Serum Alcohol 100 mg/dL 08/09/22 Range/Units 21:36 WBC (3.8-10.6) k/uL RBC (3.80-5.40) m/uL Hgb (11.4-16.0) gm/dL Hct (34.0-46.0) % MCV (80.0-100.0) fL MCH (25.0-35.0) pg MCHC (31.0-37.0) g/dL RDW (11.5-15.5) % Plt Count (150-450) k/uL MPV Neutrophils % % Lymphocytes % % Monocytes % % Eosinophils % % Basophils % % Neutrophils # (1.3-7.7) k/uL Lymphocytes # (1.0-4.8) k/uL Monocytes # (0-1.0) k/uL Eosinophils # (0-0.7) k/uL Basophils # (0-0.2) k/uL PT (9.0-12.0) sec INR (<1.2) APTT (22.0-30.0) sec Sodium (137-145) mmol/L Potassium (3.5-5.1) mmol/L Chloride (98-107) mmol/L Carbon Dioxide (22-30) mmol/L Anion Gap mmol/L BUN (7-17) mg/dL Creatinine (0.52-1.04) mg/dL Est GFR (CKD-EPI)AfAm (>60 ml/min/1.73 sqM) Est GFR (CKD-EPI)NonAf (>60 ml/min/1.73 sqM) Glucose (74-99) mg/dL Calcium (8.4-10.2) mg/dL Magnesium (1.6-2.3) mg/dL Total Bilirubin (0.2-1.3) mg/dL AST (14-36) U/L ALT (4-34) U/L Alkaline Phosphatase (38-126) U/L Troponin I <0.012 (0.000-0.034) ng/mL Total Protein (6.3-8.2) g/dL Albumin (3.5-5.0) g/dL Serum Alcohol mg/dL - Radiology Data Chest x-ray: Normal chest. No change. Noncontrast head/cervical spine CT: Negative CT scan of the brain. Minor degenerative hypertrophic changes in the cervical spine. No fracture. Disposition Clinical Impression: Syncope, Alcohol abuse, Contusion of sacrum, Head injury Disposition: HOME SELF-CARE Condition: Stable Instructions (If sedation given, give patient instructions): Coccyx Injury (ED), Syncope (ED), Abuse of Alcohol (ED) Additional Instructions: Return to the ER if you develop new or worsening pain, fainting, shortness of breath, vomiting, or new or worsening symptoms. Follow up closely with your primary care provider. Is patient prescribed a controlled substance at d/c from ED?: No Referrals: Winstno Cain DO [Primary Care Provider] - 1-2 days Time of Disposition: 23:22
--- NOTE | 2022-08-09 22:09 | CT ---
EXAMINATION TYPE: CT brain cspine wo con DATE OF EXAM: 08/09/2022 COMPARISON: None HISTORY: syncope CT DLP: 1420.6 mGycm Automated exposure control for dose reduction was used. Images of the brain and cervical spine obtained with no contrast. Ventricles have normal size. There is no mass effect or midline shift. No sign of intracranial hemorr ace. The calvarium is intact skull base is intact. There is normal alignment of the cervical vertebra. Disc spaces are fairly normal. Posterior elements are intact. No compression fracture. There is mild cervical hypertrophic facet arthropathy in the mi d and lower cervical spine. Prevertebral soft tissues are intact. There is normal aeration of the mas toid sinuses. IMPRESSION: Negative CT scan of the brain. Minor degenerative hypertrophic changes in the cervical spine. No fracture
--- NOTE | 2022-08-09 22:11 | XR ---
EXAMINATION TYPE: XR chest 1V portable DATE OF EXAM: 08/09/2022 COMPARISON: 05/11/2019 HISTORY: Syncope TECHNIQUE: Single view FINDINGS: Heart and mediastinum are normal. Lungs are clear. Diaphragm is normal. Bony thorax is norm al. There are chest leads IMPRESSION: Normal chest. No change
[2022-08-09 22:12] LABS: Basophils # (A) 0.1 k/uL (0-0.2); Basophils % (A) 1 %; Eosinophils # (A) 0.5 k/uL (0-0.7); Eosinophils % (A) 6 %; HCT 34.2 % (34.0-46.0); HGB 11.2 gm/dL (11.4-16.0); Lymphocytes # (A) 2.7 k/uL (1.0-4.8); Lymphocytes % (A) 37 %; MCH 27.6 pg (25.0-35.0); MCHC 32.6 g/dL (31.0-37.0); MCV 84.5 fL (80.0-100.0); Mean Platelet Volume 7.7; Monocytes # (A) 0.2 k/uL (0-1.0); Monocytes % (A) 3 %; Neutrophils # (A) 3.6 k/uL (1.3-7.7); Neutrophils % (A) 50 %; Platelet Count 260 k/uL (150-450); RBC 4.05 m/uL (3.80-5.40); RDW 14.8 % (11.5-15.5); WBC 7.2 k/uL (3.8-10.6)
[2022-08-09 22:21] LABS: ALT 22 U/L (4-34); AST 28 U/L (14-36); African American GFR (CKD) >90 (>60 ml/min/1.73 sqM); Albumin 4.3 g/dL (3.5-5.0); Alkaline Phosphatase 79 U/L (38-126); Anion Gap 9 mmol/L; Blood Urea Nitrogen 13 mg/dL (7-17); Calcium 8.9 mg/dL (8.4-10.2); Carbon Dioxide 23 mmol/L (22-30); Chloride 105 mmol/L (98-107); Glucose 135 mg/dL (74-99); Magnesium 1.9 mg/dL (1.6-2.3); Non-African American GFR(CKD) 82 (>60 ml/min/1.73 sqM); Potassium 4.1 mmol/L (3.5-5.1); Sodium 137 mmol/L (137-145); Total Bilirubin 0.3 mg/dL (0.2-1.3); Total Protein 6.9 g/dL (6.3-8.2)
[2022-08-09 22:23] LABS: INR 0.9 (<1.2)
[2022-08-09 22:27] LABS: Alcohol 100 mg/dL
[2022-08-09 23:13] VITALS: RESP 16
[2022-08-10 00:24] VITALS: BP 125/90; PULSE 94
== END 2022-08-10 00:24 | disposition home or self-care (01) ==
LOC: EC 21:18
DX: S30.0XXA Contusion of lower back and pelvis, initial encounter (principal); S09.90XA Unspecified injury of head, initial encounter; R55 Syncope and collapse; F10.10 Alcohol abuse, uncomplicated; I10 Essential (primary) hypertension; Z79.1 Long term (current) use of non-steroidal anti-inflammatories (NSAID); Z88.0 Allergy status to penicillin; Z88.1 Allergy status to other antibiotic agents; Z88.5 Allergy status to narcotic agent; Z88.8 Allergy status to other drugs, medicaments and biological substances; W22.09XA Striking against other stationary object, initial encounter; Y93.01 Activity, walking, marching and hiking
CPT/HCPCS: 36415; 70450; 71045; 72125; 80053; 80320; 83735; 84484; 85025; 85610; 85730; 93005; 96360; 99285